=== PATIENT | male | born 1990 | race Caucasian/White ===

== ENCOUNTER 2017-10-15 16:24 | Emergency (ER) | payer OTHER ==
[2017-10-15] MEDS ORDERED: VALACYCLOVIR HCL 500 MG TABLET PO ONE (17:27)
[2017-10-15] MEDS ORDERED: CEPHALEXIN 500 MG CAPSULE PO ONE (17:29)
--- NOTE | 2017-10-15 17:30 | ER Document Report ---
HPI - HPI Patient complains to provider of: Rash, concern about STD Onset: Last week Onset/Duration: Persistent Quality of pain: Burning Pain Level: 1 Context: Patient complains of rash to perineum for the past week. Patient states that he did shave the area recently and then did a lot of working out and is uncertain if he may have traumatized the skin or if he may have symptoms concerning for an STD. Patient denies any urinary symptoms. Patient denies any drainage or discharge from the penis. Patient is in a monogamous relationship with his . Patient denies any fever. Patient denies any previous history of sexually transmitted infections. Associated Symptoms: Other - Skin rash. denies: Fever Exacerbated by: Denies Relieved by: Denies Similar symptoms previously: No Recently seen / treated by doctor: No - ROS ROS below otherwise negative: Yes Systems Reviewed and Negative: Yes All other systems reviewed and negative - CONSTITUTIONAL Constitutional: DENIES: Fever - GASTROINTESTINAL Gastrointestinal: DENIES: Nausea - URINARY Urinary: DENIES: Dysuria - DERM Skin Color: Normal Skin Problems: Rash Past Medical History - General Information source: Patient - Social History Smoking Status: Never Smoker Frequency of alcohol use: Occasional Drug Abuse: None Occupation: Active duty Lives with: Spouse/Significant other Family History: Reviewed & Not Pertinent - Past Medical History Cardiac Medical History: Reports: Other - Chronic low blood pressure Past Surgical History: Reports: Other - Ear surgery Vertical Provider Document - CONSTITUTIONAL Agree With Documented VS: Yes Exam Limitations: No Limitations General Appearance: WD/WN, No Apparent Distress - HEENT HEENT: Atraumatic, Normocephalic - NECK Neck: Normal Inspection - RESPIRATORY Respiratory: No Respiratory Distress - REPRODUCTIVE Male Genitalia: Abnormal Inspection - Patient with erythematous, crusted skin lesions in a scattered distribution to base of penis and suprapubic area, patient shaved to perineum, minimally tender lump noted to the left testicle, normal cremasteric reflex, no drainage or discharge from penis. Karla BAIN as standby - BACK Back: Normal Inspection - MUSCULOSKELETAL/EXTREMETIES Musculoskeletal/Extremeties: GUERITA CHAVES - NEURO Level of Consciousness: Awake, Alert, Appropriate Motor/Sensory: No Motor Deficit - DERM Integumentary: Warm, Dry, Rash - Erythematous, crusted skin lesions scattered distribution to base of penis and suprapubic area Course - Re-evaluation Re-evalutation: 10/16/17 Patient advised of ultrasound report findings. Patient encouraged to follow-up with his primary doctor for recheck for any scrotal tenderness. Patient presents with findings concerning, genital warts, herpes seems less likely in the differential given patient's physical exam findings although a culture will be performed. Patient would like to have treatment for herpes while he awaits results. - Vital Signs Vital signs: Temp Pulse Resp BP Pulse Ox 98.6 F 79 16 98/65 L 99 10/15/17 16:41 10/15/17 16:41 10/15/17 16:41 10/15/17 16:41 10/15/17 16:41 Discharge - Discharge Clinical Impression: Folliculitis, Concern about STD in male without diagnosis Condition: Stable Disposition: HOME, SELF-CARE Instructions: Cephalexin ([facility]), Folliculitis ([facility]) Additional Instructions: Return immediately for any new or worsening symptoms Followup with your primary care provider, call tomorrow to make a followup appointment Cultures are pending, we will call if you need any different treatment. You can call for results at [phone] Saturday-Saturday 9-, wait at least 4 days prior to calling. Your ultrasound did not find any abnormal findings. Follow-up with your primary doctor if you have any continued scrotal discomfort or noticed any abnormal lumps or nodules. Prescriptions: Cephalexin Monohydrate [Keflex 500 mg Capsule] 500 mg PO Q6H 7 Days capsule Valacyclovir HCl [Valacyclovir] 1,000 mg PO BID #20 tablet Referrals: [facility] [Provider Group] - Follow up as needed
--- NOTE | 2017-10-15 19:08 | RADIOLOGY REPORT (SQ) ---
EXAM DESCRIPTION: U/S SCROTUM W/DOPPLER COMPLETED DATE/TIME: 10/15/2017 6:42 pm REASON FOR STUDY: left testicular lump COMPARISON: None. TECHNIQUE: Static and realtime morillo scale imaging of the scrotum and testes. Selected color Doppler and spectral images recorded to document blood flow. LIMITATIONS: None. FINDINGS: RIGHT: TESTICLE: Normal size. Normal echotexture. Normal blood flow. No mass. EPIDIDYMIS: Symmetric appearance bilaterally, 1.2 cm diameter. HYDROCELE OR VARICOCELE: No. HERNIA OR EXTRA-TESTICULAR MASS: No. OTHER: No other significant finding. LEFT: TESTICLE: Normal size. Normal echotexture. Normal blood flow. No mass EPIDIDYMIS: Symmetric appearance bilaterally, 1.3 cm diameter HYDROCELE OR VARICOCELE: No. HERNIA OR EXTRA-TESTICULAR MASS: No. OTHER: No other significant finding. IMPRESSION: Nothing acute by ultrasound. No measurable mass identified. TECHNICAL DOCUMENTATION: JOB ID: [id number] [employer]- All Rights Reserved Reading location - IP/workstation name: [email or web address]
[2017-10-15 19:47] VITALS: BP 105/66
== END 2017-10-15 19:25 | disposition home or self-care (01) ==
LOC: ER 16:24
DX: L73.9 Follicular disorder, unspecified (principal); Z20.2 Contact with and (suspected) exposure to infections with a predominantly sexual mode of transmission
CPT/HCPCS: 76870; 87250; 93976; 99284

== ENCOUNTER 2018-03-14 06:24 | Day surgery (SDC) | payer OTHER ==
[2018-03-14] MEDS ORDERED: FENTANYL CITRATE INJ/PF 100 MCG/2 ML AMPUL ONE (06:43)
[2018-03-14] MEDS ORDERED: MIDAZOLAM 2 MG/2 ML INJ ONE (06:43)
[2018-03-14] MEDS ORDERED: PROPOFOL INJ 200 MG/20 ML VIAL IV ONE (06:43)
[2018-03-14] MEDS ORDERED: HYDROMORPHONE HCL INJ/PF 2 MG/ML AMPULE ONE (06:44)
[2018-03-14] MEDS ORDERED: CEFAZOLIN 2 GM/D5W RTU 2 GM/50 ML RTUPB IV ONE (07:44)
[2018-03-14] MEDS ORDERED: BUPIVACAINE HCL 0.5 % INJ/PF 30 ML SDV ONE ×2 (08:28→09:33)
[2018-03-14] MEDS ORDERED: DIPHENHYDRAMINE HCL 50 MG/ML VIAL IV PRN (09:33)
[2018-03-14] MEDS ORDERED: FENTANYL CITRATE INJ/PF 100 MCG/2 ML AMPUL IV PRN ×3 (09:33)
[2018-03-14] MEDS ORDERED: MEPERIDINE HCL/PF INJ 25 MG/1 ML DISP.SYRIN IV PRN (09:33)
[2018-03-14] MEDS ORDERED: PROMETHAZINE HCL INJ 25 MG/1 ML VIAL IV PRN (09:33)
[2018-03-14] MEDS ORDERED: ONDANSETRON HCL INJ/PF 4 MG/2 ML SDV IV PRN (10:43)
[2018-03-14] MEDS ORDERED: OXYCODONE-ACETAMINOPHEN 5-325 MG TABLET PO PRN (10:43)
--- NOTE | 2018-03-14 10:56 | RADIOLOGY REPORT (SQ) ---
EXAM DESCRIPTION: NO CHG FLUORO; FINGER LEFT COMPLETED DATE/TIME: 03/14/2018 10:28 am REASON FOR STUDY: LEFT FINGER LIGAMENT REPAIR ASST WITH FLUORO IN OR S66.395A INJ EXTENSOR MUSC/FAS C/TEND L RNG FNGR AT WRS/HND L S63.415A TRAUM RUPT OF COLLAT LIGMT OF L RNG FNGR AT MCP/IP COMPARISON: None. FLUOROSCOPY TIME: 1 second 2 images saved to PACS. TECHNIQUE: Intra-operative images acquired during surgical procedure to evaluate progress. NUMBER OF IMAGES: 2 LIMITATIONS: None. FINDINGS: Selected images of the left 4th phalanx from procedure performed in the operating room. IMPRESSION: IMAGE(S) OBTAINED DURING PROCEDURE. COMMENT: Quality ID [id number]: Final reports for procedures using fluoroscopy that document radiation exp osure indices, or exposure time and number of fluorographic images (if radiation exposure indices are not available) Please consult full operative report of the attending physician for description of the procedure. TECHNICAL DOCUMENTATION: JOB ID: [id number] [employer]- All Rights Reserved Reading location - IP/workstation name: [email or web address]
--- NOTE | 2018-03-14 14:09 | OPERATIVE REPORT E ---
Operative Report NAME: WILFREDO SANDHU : 1990 AGE: 27Y DATE OF SURGERY: 03/14/2018 ROOM: PREOPERATIVE DIAGNOSES: 1. Left ring finger extensor tendon and central slip disruption. 2. Left ring finger proximal interphalangeal joint radial collateral ligament injury. POSTOPERATIVE DIAGNOSES: 1. Left ring finger extensor tendon and central slip disruption. 2. Left ring finger proximal interphalangeal joint radial collateral ligament injury. PROCEDURES: 1. Left ring finger extensor tendon repair. 2. Left ring finger radial collateral ligament repair. SURGEON: SAUMYA TORRES M.D. ANESTHESIA: General. ESTIMATED BLOOD LOSS: Minimal. COMPLICATIONS: None. 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 Despite splinting and therapy, he continues to have weakness in extension of proximal interphalangeal joint as well as pain and instability of the radial collateral ligament, impairing his ability to function as a [employer]. DESCRIPTION OF PROCEDURE: Following the induction of general anesthetic and administration of antibiotics, patient was placed supine on the operating room table. All bony prominences were padded. A tourniquet was placed proximally on the left arm but not inflated. Left upper extremity was sterilely prepped with ChloraPrep and draped in standard fashion. The arm was exsanguinated and tourniquet inflated to 100 mmHg above systolic pressure. A curvilinear incision was made on the dorsoradial aspect of the digits extensors mid laterally over the radial collateral ligament to flap across dorsally to expose the complete extensor complex. Sharp dissection was performed through the skin with blunt dissection through subcutaneous tissue. Care was taken to identify and protect superficial branching nerves and vessels. On both sides the transverse retinacular ligaments were released to allow mobilization of the lateral band. Once mobilized the central slip insertion was visualized. It was still mostly intact but clearly had been injured and was no longer a *------* but more of a scar-like insertion on the dorsum of the digit. I decided to reinforce this with splits up the lateral band. The lateral bands were split 50% of their width and brought dorsally. An Arthrex suture anchor was placed at the normal insertion of the central slip. This suture anchor was used to both imbricate the remaining remnants of the central slip as well as to bring the mobilized sagittal band dorsally to the typical insertion of the central slip. This restored central slip and extensor tendon function at the PIP joint. The radial collateral ligament was then visualized. It also was mostly intact but had become a scar-like structure with some laxity at its origin from the neck of the proximal phalanx. This area was split, suture anchor was put into place, and the remnants of the collateral *------* were tightened and imbricated to the area of its origin, restoring stability of the radial collateral ligament complex. The wound was then copiously irrigated. The skin was approximated with nylon suture, 0.25% Marcaine was injected as a digital block for postoperative analgesia. A bulky dressing followed by a digital splint was applied. The patient tolerated the procedure well without complications and was brought to the recovery room in stable condition. DICTATING PHYSICIAN: SAUMYA TORRES M.D. [id number] PHY#: [id number] ID: [id number] JOB#: [id number] ACCT: [id number] cc:SAUMYA TORRES M.D. >
[2018-03-14 14:48] VITALS: BP 100/64
== END 2018-03-14 12:00 | disposition home or self-care (01) ==
LOC: OROUT 06:24
PROVIDERS: ATTEND Orthopaedic Surgery
DX: S66.315A Strain of extensor muscle, fascia and tendon of left ring finger at wrist and hand level, initial encounter (principal); S63.415A Traumatic rupture of collateral ligament of left ring finger at metacarpophalangeal and interphalangeal joint, initial encounter; X58.XXXA Exposure to other specified factors, initial encounter; Z79.1 Long term (current) use of non-steroidal anti-inflammatories (NSAID); Z79.899 Other long term (current) drug therapy
CPT/HCPCS: 73140; 26418; 26540; C1713; J2250; J3490; J3010; J1170; J2405; J2704; J0690; 01810